=== PATIENT | female | born 1960 | race Caucasian/White ===

== ENCOUNTER 2022-11-17 06:39 | Day surgery (SDC) | payer OTHER ==
[~2022-11-17] VITALS: Ht 154.9 cm; Wt 100.0 kg
[~2022-11-17 06:39] MED LIST: SODIUM CHLORIDE 0.9% 1,000 ML IV ONE
[2022-11-17] MEDS ORDERED: LIDOCAINE 4% 50 ML SOLUTION TP ONE (06:40)
[2022-11-17] MEDS ORDERED: BENZOCAINE 20% 50 MCG/SPRAY 57 GM TP ONE (06:40)
[2022-11-17] MEDS ORDERED: ALBUTEROL SULFATE 2.5 MG/0.5 ML NEB SOLUTION NEB ONE (06:40)
[2022-11-17] MEDS ORDERED: LIDOCAINE 2% 11 ML JELLY TP ONE (06:40)
[2022-11-17] MEDS ORDERED: SODIUM CHLORIDE 0.9% 1,000 ML ONE (07:34)
[2022-11-17] MEDS ORDERED: MIDAZOLAM HCL 2 MG/2 ML VIAL ONE (08:00)
[2022-11-17] MEDS ORDERED: FentaNYL CITRATE PF 100 MCG/2 ML VIAL ONE (08:00)
[2022-11-17 08:01] LABS: GLUCOMETER DEV NAME(LOC) SDS.; GLUCOSE,POINT OF CARE 119 MG/DL (70-110)
[2022-11-17 08:57] VITALS: PULSE 65; RESP 17; O2SAT 100
[2022-11-17] MEDS ORDERED: MethylPREDNISolone SOD SUCC 125 MG/2 ML VIAL ONE (08:57)
[2022-11-17] MEDS ORDERED: MethylPREDNISolone SOD SUCC 125 MG/2 ML VIAL IVP ONE (09:15)
== END 2022-11-17 11:20 | disposition home or self-care (01) ==
LOC: SURGERY 06:39
PROVIDERS: ATTEND Internal Medicine Critical Care Medicine
DX: J38.4 Edema of larynx (principal); B37.0 Candidal stomatitis; Z79.899 Other long term (current) drug therapy; E11.9 Type 2 diabetes mellitus without complications; Z98.890 Other specified postprocedural states
CPT/HCPCS: 31623; 88112; 82962; 87206; 87101; 87220; 87070; 31624; 94640; 71045; 71250; 87015; J3010; J2250; J2930; Q9967; J7030; J7613; Z7610